=== PATIENT | female | born 1960 | race Caucasian/White ===

== ENCOUNTER 2021-01-15 17:36 | Inpatient (IN) | payer MEDICAID ==
[~2021-01-15] VITALS: Ht 162.6 cm; Wt 94.8 kg
[2021-01-15 18:25] LABS: HEMATOCRIT 40.8 % (31.2-41.9); MEAN CORPUSCULAR VOLUME 82.8 fL (75.5-95.3); PLATELET COUNT (AUTO) 251 K/uL (179-408)
[2021-01-15 18:31] LABS: POTASSIUM 3.6 mmol/L (3.5-5.1)
[2021-01-15 18:43] LABS: BILIRUBIN,TOTAL 0.6 mg/dL (0.2-1.0); TOTAL PROTEIN, SERUM 8.3 g/dL (6.4-8.2)
[2021-01-15] MEDS ORDERED: IOHEXOL 350 100 ML INFUS..BTL ONE (20:01)
[2021-01-15] MEDS ORDERED: IV NORMAL SALINE 250 ML IV ONE (20:01)
[2021-01-15] MEDS ORDERED: SWABABLE VALVE TRANSFER SET EA MC ONE (20:01)
[2021-01-15] MEDS ORDERED: ACETAMINOPHEN 325 MG TABLET PO ONE (20:45)
[2021-01-15] MEDS ORDERED: ACETAMINOPHEN 325 MG TABLET ONE (20:55)
[2021-01-15] MEDS ORDERED: AZITHROMYCIN IV 500 MG in IV DEXTROSE 5% 250 ML IV ONE (23:30)
[2021-01-15] MEDS ORDERED: AZITHROMYCIN 500MG/ D5W 250ML IVPB **ER PYXIS ONLY IV ONE (23:55)
[2021-01-16 05:37] LABS: *BILIRUBIN,URIN NEGATIVE (NEGATIVE); *CLARITY,URINE CLEAR (CLEAR); *COLOR,URINE YELLOW (YELLOW); *KETONES,URINE NEGATIVE (NEGATIVE); *UROBILINOGEN,URINE 0.2 E.U./dl (NORMAL); LEUKOCYTE ESTERASE ,URINE NEGATIVE (NEGATIVE); NITRITE, URINE NEGATIVE (NEGATIVE); PH,URINE 5.5 (5.0-8.0); UGLUCOSE NEGATIVE (NEGATIVE)
[2021-01-16 05:39] LABS: *BLOOD, URINE TRACE LYSED (NEGATIVE)
[2021-01-16 05:40] LABS: BACTERIA,URINE NONE SEEN /HPF (NONE SEEN); RBC,URINE 0-3 /HPF (0-3); WBC,URINE 0-3 /HPF (0-3)
[2021-01-16] MEDS ORDERED: MAGNESIUM HYDROXIDE 30 ML LIQUID UDC PO PRN (07:30)
[2021-01-16] MEDS ORDERED: Z GUARD REMEDY PASTE 57 GM TUBE TOP PRN (07:30)
[2021-01-16] MEDS: levoFLOXacin 750MG/D5W 750 MG in PREMIXED 1 EACH IV SCH ×2 (08:22→08:28)
[2021-01-16] MEDS ORDERED: levoFLOXacin 750MG/D5W 150 ML IV ONE (08:27)
[2021-01-16] MEDS ORDERED: HYDROMORPHONE 1 MG/1 ML DISP.SYRIN IV PRN (10:15)
[2021-01-16] MEDS: ENOXAPARIN SODIUM 40 MG/0.4 ML DISP.SYRIN SQ SCH (11:17)
[2021-01-16] MEDS ORDERED: ENOXAPARIN SODIUM 40 MG/0.4 ML DISP.SYRIN SQ ONE (11:26)
[2021-01-16] MEDS: DEXAMETHASONE SOD PHOSPHATE 10 MG INJ IV SCH (12:44)
[2021-01-16] MEDS ORDERED: DEXAMETHASONE SOD PHOSPHATE 10 MG INJ ONE (12:47)
[2021-01-17] MEDS: PANTOPRAZOLE SODIUM 40 MG TABLET.DR PO SCH (06:11)
[2021-01-17] MEDS ORDERED: PANTOPRAZOLE SODIUM 40 MG TABLET.DR PO ONE ×2 (06:12→09:24)
[2021-01-17 06:33] LABS: HEMATOCRIT 41.6 % (31.2-41.9); MEAN CORPUSCULAR HEMOGLOBIN 27.9 uug (24.7-32.8); MEAN CORPUSCULAR VOLUME 82.9 fL (75.5-95.3); PLATELET COUNT (AUTO) 317 K/uL (179-408)
[2021-01-17 06:42] LABS: CREATININE 1.1 mg/dL (0.6-1.3); MAGNESIUM 2.7 mg/dL (1.8-2.4); PHOSPHOROUS 3.6 mg/dL (2.5-4.9); POTASSIUM 3.6 mmol/L (3.5-5.1)
[2021-01-17] MEDS ORDERED: IV 1/2NS 1000 ML 1,000 ML IV PRN (09:15)
[2021-01-17] MEDS ORDERED: ENOXAPARIN SODIUM 40 MG/0.4 ML DISP.SYRIN SQ ONE (09:23)
[2021-01-17] MEDS ORDERED: DEXAMETHASONE SOD PHOSPHATE 4 MG INJ ONE (09:24)
[2021-01-17] MEDS: DEXAMETHASONE SOD PHOSPHATE 10 MG INJ IV SCH (09:30)
[2021-01-17] MEDS: ENOXAPARIN SODIUM 40 MG/0.4 ML DISP.SYRIN SQ SCH (09:31)
[2021-01-17] MEDS ORDERED: POTASSIUM CHLORIDE (10:37)
[2021-01-17] MEDS ORDERED: OLME5TAB3 (10:37)
[2021-01-17] MEDS ORDERED: PANTOPRAZOLE (10:37)
[2021-01-17] MEDS ORDERED: LORATADINE (10:37)
[2021-01-17] MEDS ORDERED: LOMOTIL (10:37)
[2021-01-17] MEDS ORDERED: ZOFRAN (10:37)
[2021-01-17] MEDS ORDERED: BACTRIM (10:37)
[2021-01-17] MEDS ORDERED: ARMOUR THYROID (10:37)
[2021-01-17 20:30] VITALS: BP 140/66
[2021-01-18 00:03] VITALS: BP 139/57
[2021-01-18 04:00] VITALS: BP 124/56
[2021-01-18] MEDS: PANTOPRAZOLE SODIUM 40 MG TABLET.DR PO SCH (06:02)
[2021-01-18 06:20] LABS: HEMATOCRIT 39.1 % (31.2-41.9); MEAN CORPUSCULAR HEMOGLOBIN 28.1 uug (24.7-32.8); PLATELET COUNT (AUTO) 340 K/uL (179-408)
[2021-01-18 06:36] LABS: CREATININE 0.9 mg/dL (0.6-1.3); MAGNESIUM 2.5 mg/dL (1.8-2.4); POTASSIUM 3.8 mmol/L (3.5-5.1)
[2021-01-18] MEDS ORDERED: THYR30TA2 PO (07:34)
[2021-01-18] MEDS: DEXAMETHASONE SOD PHOSPHATE 10 MG INJ IV SCH (09:03)
[2021-01-18] MEDS: ENOXAPARIN SODIUM 40 MG/0.4 ML DISP.SYRIN SQ SCH (09:04)
[2021-01-18 11:28] VITALS: BP 139/59
[2021-01-18] MEDS ORDERED: FOLI1TAB94 PO (13:05)
[2021-01-18] MEDS ORDERED: CLON0.5T23 PO (13:05)
[2021-01-18] MEDS ORDERED: ERGO500040 PO (13:05)
[2021-01-18] MEDS ORDERED: LORA10TA7 PO (13:06)
[2021-01-18] MEDS ORDERED: PANT40TA49 PO (13:06)
[2021-01-18] MEDS ORDERED: CARV6.252 PO (13:07)
[2021-01-18] MEDS ORDERED: ROSU20TA2 PO (13:07)
[2021-01-18] MEDS ORDERED: OLME1TAB16 PO (13:08)
[2021-01-18] MEDS ORDERED: ZOLP10TA2 PO (13:09)
[2021-01-18] MEDS ORDERED: DULO60CA45 PO (13:09)
[2021-01-18] MEDS ORDERED: DEXA6TAB6 PO (13:20)
[2021-01-18 15:32] VITALS: BP 133/70
== END 2021-01-18 18:00 | disposition home or self-care (01) | DRG 137 ==
LOC: ER 17:39 → TELE3 01-16 07:28 → UNDOADMIN 01-16 08:47 → TRANSITION 01-16 08:47 → UNDOADMIN 01-17 20:01 → TELE3 01-17 20:01 → UNDODISIN 01-18 17:38
PROVIDERS: ADMIT Internal Medicine; ATTEND Nurse Practitioner Family
DX: U07.1 COVID-19 (principal); J96.01 Acute respiratory failure with hypoxia; J12.82 Pneumonia due to coronavirus disease 2019; E87.1 Hypo-osmolality and hyponatremia; G90.8 Other disorders of autonomic nervous system; E86.0 Dehydration; Z85.820 Personal history of malignant melanoma of skin; Z88.0 Allergy status to penicillin; Z88.2 Allergy status to sulfonamides; E66.9 Obesity, unspecified; Z68.35 Body mass index [BMI] 35.0-35.9, adult; I10 Essential (primary) hypertension; R79.1 Abnormal coagulation profile
CPT/HCPCS: 36415; 70030-TC; 71045; 71275; 83605; 83615; 83735; 84100; 85025; 85730; 86140; 86803; 87040; 87400; 87806; 93005; 93307; 93880; 94760; A4663; G0378; J0456; J1100; J1650; J1956; J3490; J7050; Q9967; U0003